=== PATIENT | female | born 1950 | race Caucasian/White ===

== ENCOUNTER 2021-12-10 14:06 | Inpatient (IN) | payer MEDICARE, MEDICAID, SELFPAY ==
[2021-12-10] VITALS (28 sets, daily range): BP systolic 114–167; BP diastolic 61–118; PULSE 45–93; RESP 9–24; TEMP 36.7–37.7; O2SAT 89–98; BMI 30.7
--- NOTE | 2021-12-10 14:26 | XR_ITS ---
WS: [id number] Portable AP semiupright chest, 12/10/2021 Clinical Data: altered mental statu Comparison: Portable chest, 08/11/2009. Findings: No nodules, masses or effusions are seen. The heart is normal. The pulmonary vascularity is not increased. No pneumonia or pneumothorax is seen. The aortic arch and descending thoracic aorta s how calcification and tortuosity. XR/XR chest 1V portable [id number] Impression: Atherosclerosis.
--- NOTE | 2021-12-10 14:28 | ECG_ITS ---
[facility] Test Date: 2021-12-10 Pat Name: Anahi Casanova Department: Room: Gender: Female Layout Former: : 1950 Requested By: Kaushal Guo Order Number: [id number] Mitch MD: Jovi Lagunas M.D. Measurements Intervals [place] Rate: 79 P: 50 AK: 141 QRS: -44 QRSD: 82 T: 32 QT: 360 QTc: 414 Interpretive Statements SINUS RHYTHM LEFT AXIS DEVIATION [QRS AXIS < -30] SEPTAL MYOCARDIAL INFARCTION , OF INDETERMINATE AGE [40+ ms Q WAVE IN V1/V2] No previous ECG available for comparison Electronically Signed On 12-10-2021 17:50:35 CDT by Jovi Lagunas M.D. [id number]
--- NOTE | 2021-12-10 14:28 | CT_ITS ---
WS: [id number] CT HEAD NONCONTRAST HISTORY: Symptoms of Acute Stroke TECHNIQUE: Contiguous axial imaging performed through the brain in 2.5 mm imaging. Bone and soft tiss ue windows. Sagittal and coronal reformats reviewed. All CT scans at [facility] use at least one of these dose optimization techniques: automated exposure control; mA and/or kV adjustment per pa tient size (includes targeted exams where dose is matched to clinical indication); or iterative recon struction. DLP: 888.15 mGy.cm COMPARISON: None available. Marked symmetric atrophy bilaterally and marked chronic microvascular ischemic type disease. There is extensive prior microvascular ischemic disease and lacunar infarcts. Bilateral chronic lacunar infar cts in the thalami. Ventricles: Ventricles and extra-axial spaces are prominent on the basis of atrophy. There is some increased density in the expected location of the RIGHT carotid at the skull base. May represent a small amount of acute thrombus. This is a very difficult area to evaluate by CT to the ad jacent bone. Paranasal sinuses: As visualized are clear. Mastoid air cells: Well pneumatized. Calvarium and scalp: Skull is intact with no soft tissue edema or swelling. Heavy, dense calcification in the intracranial carotid arteries through the cavernous sinuses and sup raclinoid. CT/CT head wo con* [id number] IMPRESSION: 1. No acute intracranial hemorrhage or edema. 2. Marked atrophy, chronic microvascular ischemic disease and numerous lacunar infarcts. 3. Slight increased density in the petrous portion of the RIGHT intracranial c arotid artery. This is a difficult region to evaluate by CT. May represent a sm all amount of thrombus. Notified Kaushal Guo at 12/10/2021 2:44 PM.
[2021-12-10 14:37] LABS: Basophils # 0.1 10^3/uL (0.0-0.1); Basophils % 0.4 %; Eosinophils # 0.1 10^3/uL (0.0-0.8); Eosinophils % 0.6 %; Hemoglobin 13.9 g/dL (11.5-15.3); Lymphocytes # 0.4 10^3/uL (0.8-4.8); Lymphocytes % 3.1 %; Mean Corpuscular HGB Conc 30.9 g/dL (30.0-36.0); Mean Corpuscular Hemoglobin 29.5 pg (28.0-34.0); Mean Corpuscular Volume 95.5 fl (81-99); Mean Platelet Volume 11.1 fL (7.4-10.4); Monocytes # 0.3 10^3/uL (0.2-0.9); Monocytes % 2.1 %; Neutrophils # 11.46 10^3/uL (1.8-7.7); Neutrophils % 93.1 %; Nucleated Red Blood Cells % 0 %; Platelet Count 138 10^3/cmm (130-400); Red Blood Count 4.71 10^6/uL (4.1-5.3); Red Cell Distribution Width 13.8 % (12.1-15.1); White Blood Count 12.3 10^3/uL (4.0-10.0)
[2021-12-10 14:42] LABS: Glucose Point of Care 82 mg/dL (70-110)
[2021-12-10 15:02] LABS: Alanine Aminotransferase 9 U/L (0-33); Albumin Level 3.4 g/dL (3.5-5.2); Alkaline Phosphatase 111 IU/L (35-105); Aspartate Amino Transferase 21 U/L (0-32); Blood Urea Nitrogen 29 mg/dL (8-23); Calcium 10.8 mg/dL (8.5-10.5); Carbon Dioxide 26 mmol/L (22-29); Chloride 111 mmol/L (98-107); Glucose 97 mg/dL (65-115); Osmolality Calculated 310 mOsm/kg (285-295); Sodium 147 mmol/L (136-145); Total Bilirubin 1.5 mg/dL (0.15-1.2); Total Protein 6.4 g/dL (6.6-8.7)
--- NOTE | 2021-12-10 15:02 | ED_ITS ---
HPI - Altered Mental Status General: Chief Complaint: Altered Mental Status Stated Complaint: possible stroke Time Seen by Provider: 12/10/21 14:09 History of Present Illness: 71-year-old female presents from the [facility] facility chief complaint of strokelike symptoms that started around noon. Patient has a known history of dementia reports no prior history of strokes per staff last known well was between 1130 and noon after eating lunch she was found unresponsive with left-sided significant weakness and confusion patient was presented to the ER for further assessment and management. Unsure per staff the patient had sustained a fall or had any injuries. Review of Systems General: Reports: ROS unobtainable due to mental status and Other (Unable to obtain accurate review of systems as patient appears very confuse) PFSH ED PFSH: Medical History CKD (chronic kidney disease) HTN (hypertension) Hyperlipidemia Vitamin D deficiency Physical Exam Narrative: Patient has obvious left-sided facial droop left-sided decorticate posture left arm unable to move either of her legs 2+ pitting edema appreciated appears to be very confused with difficulty with word finding Const: COMMON NORMALS: alert (Patient alert oriented x2) HENMT: COMMON NORMALS: normocephalic and external ears normal HEAD & SCALP: normocephalic EXTERNAL EAR: Yes external ears normal Eye: COMMON NORMALS: Equal, round and reactive pupils present PUPIL: Yes Equal, round and reactive pupils present Neck/C-Spine: COMMON NORMALS: no lymphadenopathy, supple and no JVD Lymph: LYMPHATIC: no lymphadenopathy noted and other (Pitting edema noted to bilateral lower extremities.) Chest: COMMONS NORMALS: normal inspection of the chest Resp: COMMON NORMALS: normal respiratory effort, No retractions, No use of accessory muscles and clear to auscultation bilaterally AUSCULTATION: clear to auscultation bilaterally Cardio: COMMON NORMALS: no JVD, regular rate and regular rhythm RATE: regular rate RHYTHM: regular rhythm GI: COMMON NORMALS: Normal to inspection, nondistended, normoactive bowel sounds present, Soft to palpation and non-tender PALPATION: Yes Soft to palpation : COMMON NORMALS: Yes no CVA tenderness BLADDER/KIDNEY EXAM: Yes no CVA tenderness Back/Pelvis: COMMON NORMALS: no CVA tenderness and thoracic and lumbar spine normal to inspection Extremity: NARRATIVE EXTREMITY EXAM: Difficulty with moving both the legs weakness appears to be more in the left side no obvious foot drop appreciated reduced deep tendon reflexes appreciated bilaterally. With no obvious injury. Neuro: CECILY COMA SCALE: document GCS findings SENSORIUM/ORIENTATION: Yes alert (Patient alert oriented x2) OTHER: Obvious decorticate posturing noted to left eye the body NIH approximately 10 on eval however very difficult due to the patient being confused which appears to be somewhat chronic for her obvious left-sided facial droop noted Skin: COMMON NORMALS: no rashes or lesions noted and no wounds GENERAL SKIN EXAM: no rashes or lesions noted Course Vital Signs: Vital signs: Vital Signs Temperature 99.9 F H 12/10/21 14:49 Pulse Rate 72 12/10/21 14:49 Respiratory Rate 17 12/10/21 14:49 Blood Pressure 140/72 12/10/21 14:49 Pulse Oximetry 94 12/10/21 14:09 MDM - Altered Mental Status Medical Decision Making Due to the patient's symptoms and condition at time of onset patient was a stroke activation virtual neurologist assessed the patient in which after speaking with family via nursing staff over the phone it was decided the patient was a TPA candidate as his new did decorticate posturing was not there preceding leg. Initial CT imaging did not reveal any obvious acute stroke. Discussed the patient's case with the sampling expert Dr. Huerta is granted acceptance to the ICU. The patient upon secondary evaluation appears to be somewhat improved in which her decorticate posturing is improving however she still has residual deficits. Due to the family being absent risk versus benefits of TPA were done over the phone via nursing staff in which per the patient's family guardian noted in his chart is in agreement of the risk versus benefit ratio of the TPA. Patient remains in guarded condition at this time. Lab Data : 12/10/21 14:28 12/10/21 14:28 Radiology Impressions Chest X-Ray 12/10/21 14:26 Impression: Atherosclerosis. Head CT 12/10/21 14:28 IMPRESSION: 1. No acute intracranial hemorrhage or edema. 2. Marked atrophy, chronic microvascular ischemic disease and numerous lacunar infarcts. 3. Slight increased density in the petrous portion of the RIGHT intracranial carotid artery. This is a difficult region to evaluate by CT. May represent a small amount of thrombus. Notified Kaushal Guo at 12/10/2021 2:44 PM. Laboratory Results WBC 12.3 10^3/uL (4.0-10.0) H 12/10/21 14: RBC 4.71 10^6/uL (4.1-5.3) 12/10/21 14: Hgb 13.9 g/dL (11.5-15.3) 12/10/21 14: Hct 45.0 % (37.0-47.0) 12/10/21 14: MCV 95.5 fl (81-99) 12/10/21 14: MCH 29.5 pg (28.0-34.0) 12/10/21 14: MCHC 30.9 g/dL (30.0-36.0) 12/10/21: RDW 13.8 % (12.1-15.1) 12/10/21 14: Plt Count 138 10^3/cmm (130-400) 12/10/21 14: MPV 11.1 fL (7.4-10.4) H 12/10/21 14: Neut % (Auto) 93.1 % 12/10/21 14: Lymph % (Auto) 3.1 % 12/10/21 14: Stearns % (Auto) 2.1 % 12/10/21 14: Eos % (Auto) 0.6 % 12/10/21 14: Baso % (Auto) 0.4 % 12/10/21: Neut # (Auto) 11.46 10^3/uL (1.8-7.7) H 12/10/21 14: Lymph # (Auto) 0.4 10^3/uL (0.8-4.8) L 12/10/21 14: Stearns # (Auto) 0.3 10^3/uL (0.2-0.9) 12/10/21: Eos # (Auto) 0.1 10^3/uL (0.0-0.8) 12/10/21 14: Baso # (Auto) 0.1 10^3/uL (0.0-0.1) 12/10/21 14: Nucleated RBC % (auto) 0 % 12/10/21 14:28 Nucleated RBCs # 0.0 /100WBC 12/10/21 14:28 PT 12.90 SECONDS (12.1-14.9) 12/10/21 14:28 INR 0.95 (0.8-1.2) 12/10/21 14:28 APTT 27.6 SECONDS (23.9-36.7) 12/10/21 14:28 Sodium 147 mmol/L (136-145) H 12/10/21 14:28 Potassium 4.4 mmol/L (3.5-5.1) 12/10/21 14:28 Chloride 111 mmol/L (98-107) H 12/10/21 14:28 Carbon Dioxide 26 mmol/L (22-29) 12/10/21 14:28 Anion Gap 14.4 (5-19) 12/10/21 14: BUN 29 mg/dL (8-23) H 12/10/21 14:28 Creatinine 1.7 mg/dL (0.5-0.9) H 12/10/21 14:28 GFR Calculation Not Reportable 12/10/21 14:28 Glucose 97 mg/dL (65-115) 12/10/21 14:28 POC Glucose 82 mg/dL (70-110) 12/10/21 14:39 Calculated Osmolality 310 mOsm/kg (285-295) H 12/10/21 14:28 Calcium 10.8 mg/dL (8.5-10.5) H 12/10/21 14:28 Total Bilirubin 1.5 mg/dL (0.15-1.2) H 12/10/21 14:28 AST 21 U/L (0-32) 12/10/21 14:28 ALT 9 U/L (0-33) 12/10/21 14:28 Alkaline Phosphatase 111 IU/L (35-105) H 12/10/21 14:28 Total Protein 6.4 g/dL (6.6-8.7) L 12/10/21 14:28 Albumin 3.4 g/dL (3.5-5.2) L 12/10/21 14:28 Globulin 3.0 g/dL (1.3-4.6) 12/10/21 14:28 Discharge Plan Discharge Patient Disposition: Admitted As Inpatient Clinical Impression: Stroke, Received intravenous tissue plasminogen activator (tPA) in emergency department, Decorticate posturing Condition: Stable Coding Level of Care Code ED Household Refrigeration Mechanic for Sanchez Osman
[2021-12-10 15:05] LABS: Anion Gap 14.4 (5-19); Potassium 4.4 mmol/L (3.5-5.1)
[2021-12-10 15:08] LABS: INR 0.95 (0.8-1.2)
[2021-12-10 15:09] LABS: Partial Thromboplastin Time 27.6 SECONDS (23.9-36.7)
--- NOTE | 2021-12-10 17:03 | CTR_ITS ---
PROCEDURE INFORMATION: Exam: CT Angiography Head With Contrast, Arteriography Exam date and time: 12/10/2021 6:00 PM Age: 71 years old Clinical indication: Patient HX: Found unresponsive now w R side weakness; Additional info: Stroke TECHNIQUE: Imaging protocol: Computed tomography angiography of the head with contrast. Exam focused on the arteries. 3D rendering (Not supervised by radiologist): MIP and/or 3D reconstructed images were created by the technologist. Radiation optimization: All CT scans at this facility use at least one of these dose optimization techniques: automated exposure control; mA and/or kV adjustment per patient size (includes targeted exams where dose is matched to clinical indication); or iterative reconstruction. Contrast material: VISI 320; Contrast volume: 95 ml; Contrast route: INTRAVENOUS (IV); COMPARISON: 1. CT head wo con* [id number] 12/10/2021 2:32 PM 2. CR XR chest 1V portable [id number] 12/10/2021 2:40 PM RADIATION DOSE METRICS: Total DLP (mGy-cm): 1396.47 FINDINGS: ANTERIOR CIRCULATION: Right internal carotid artery: Calcified plaque in the cavernous right internal carotid artery without significant stenosis. Right middle cerebral artery: Mild irregularity and mild stenosis in the M1 segment of the right middle cerebral artery. The remaining branches are widely patent. Right anterior cerebral artery: Unremarkable. No occlusion or significant stenosis. No aneurysm. Left internal carotid artery: Calcified plaque in the cavernous left internal carotid artery without significant stenosis. Left middle cerebral artery: Unremarkable. No occlusion or significant stenosis. No aneurysm. Left anterior cerebral artery: Unremarkable. No occlusion or significant stenosis. No aneurysm. POSTERIOR CIRCULATION: Right vertebral artery: Unremarkable. No occlusion or significant stenosis. No aneurysm. Left vertebral artery: Unremarkable. No occlusion or significant stenosis. No aneurysm. 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 No evidence for leak. Right posterior cerebral artery: Unremarkable. No occlusion or significant stenosis. No aneurysm. Left posterior cerebral artery: Unremarkable. No occlusion or significant stenosis. No aneurysm. Brain: Severe hypodensities in supratentorial periventricular and subcortical white matter, consistent with microangiopathy. No intracranial hemorrhage. Moderate cortical volume loss. Cerebral ventricles: No ventriculomegaly. Orbital cavity: Prior cataract surgery. Bones/joints: Unremarkable. No acute fracture. Soft tissues: Unremarkable. PROCEDURE INFORMATION: Exam: CT Angiography Neck With Contrast Exam date and time: 12/10/2021 6:00 PM Age: 71 years old Clinical indication: Patient HX: Found unresponsive now w R side weakness; Additional info: Stroke TECHNIQUE: Imaging protocol: Computed tomography angiography of the neck with contrast. 3D rendering (Not supervised by radiologist): MIP and/or 3D reconstructed images were created by the technologist. Radiation optimization: All CT scans at this facility use at least one of these dose optimization techniques: automated exposure control; mA and/or kV adjustment per patient size (includes targeted exams where dose is matched to clinical indication); or iterative reconstruction. Contrast material: VISI 320; Contrast volume: 95 ml; Contrast route: INTRAVENOUS (IV); COMPARISON: 1. CT head wo con* [id number] 12/10/2021 2:32 PM 2. CR XR chest 1V portable [id number] 12/10/2021 2:40 PM RADIATION DOSE METRICS: Total DLP (mGy-cm): 1396.47 FINDINGS: Right common carotid artery: No stenosis. No dissection or occlusion. Right internal carotid artery: Calcified plaque in the proximal right internal carotid artery with 0% stenosis. Right external carotid artery: No occlusion or stenosis of the origin. Left common carotid artery: Mild plaque in the distal left common carotid artery with less than 20% stenosis. Left internal carotid artery: Calcified plaque in the proximal left internal carotid artery with 0% stenosis. Left external carotid artery: No occlusion or stenosis of the origin. Right vertebral artery: No stenosis. No dissection or occlusion. Left vertebral artery: No stenosis. No dissection or occlusion. Left subclavian artery: Calcified and noncalcified plaque in the proximal left subclavian artery with 50% stenosis. Thyroid: Bilateral thyroid nodules measuring up to 1.6 cm on the right. Soft tissues: Normal. No significant soft tissue swelling. Bones/joints: No acute fracture. CT/CT angio headneck* [id number] IMPRESSION: 1. Mild irregularity and mild stenosis in the M1 segment of the right middle cerebral artery. This is likely not hemodynamically significant and could represent atherosclerotic disease or vasculitis. 2. No other large artery occlusion or stenosis. 3. 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 IMPRESSION: 1. Calcified plaque in the bilateral proximal internal carotid arteries with 0% stenosis. 2. 50% stenosis in the proximal left subclavian artery. 3. Thyroid nodules measuring up to 1.6 cm. Ultrasound follow-up is recommended. COMMENTS: Consistent with the [employer]'s Incidental Findings Committee white paper (J Am Yeimi Radiol 2015): In patients aged 35 years and older with an incidental thyroid nodule equal to or greater than 1.[address], MRI or extrathyroidal US, further evaluation with dedicated thyroid US is recommended for patients with normal life expectancy and without comorbidities. For smaller nodules without suspicious features, no further evaluation or follow up is recommended. REFERENCES: NASCET CRITERIA. The degree of internal carotid artery stenosis is based on NASCET criteria. Normal is no stenosis. Mild is less than 50% stenosis. Moderate is 50-69% stenosis. Severe is 70% to 99% stenosis. Total occlusion is no detectable patent lumen.
--- NOTE | 2021-12-10 17:06 | P.HP_ITS ---
Providers/Chief Complaint Primary Care Provider: Ovidio Dumas MD Chief Complaint: possible stroke History of Present Illness Most of the history taken 02 conversation with long term, ER physician and chart review. Anahi Casanova is a 71 year old female who is a long term resident, previously on hospice which was recently revoked, advanced dementia presented to the ER today after found to be having weakness of the left side of the body with facial drooping at around 11 AM. In the ER CT head was done labs were drawn. Labs are consistent with a white count 12.3, hemoglobin of 13.9, INR of 0.9, sodium 147, chloride of 111, creatinine of 1.7, albumin of 3.[address] head as below. Stroke code was called and neurologist at [facility] was consulted at that time patient had an NIH score of 12 and decision was made to give TPA after confirming with patient's state appointed guardian Ms. Alcala on [phone]. Hospital services consulted for further care and admission. Review of Systems General: Reports: ROS unobtainable due to mental status Medications/Allergies Home Medications Medication Instructions Recorded Confirmed Last Taken Type acetaminophen 325 mg tablet 650 mg PO QID PRN tab 12/31/19 12/10/21 Unknown History (Tylenol) acetaminophen 650 mg rectal 650 mg OK Q4H PRN 12/31/19 12/10/21 Unknown History suppository loperamide 2 mg capsule (Imodium 2 mg PO Q6H PRN 12/31/19 12/10/21 Unknown History A-D) hydrocodone 10 mg-acetaminophen 1 tab PO BID 30 Days #60 tab 12/03/21 12/10/21 12/10/21 Rx 325 mg tablet magnesium hydroxide 400 mg/5 mL 15 ml PO BID PRN 12/10/21 12/10/21 Unknown History oral suspension (Milk of Magnesia) morphine 20 mg/5 mL (4 mg/mL) oral See Rx Instructions .ROUTE 12/10/21 12/10/21 Unknown History solution .COMPLEX PRN olanzapine 2.5 mg tablet (Zyprexa) 2.5 mg PO QPM 12/10/21 12/10/21 12/09/21 History sennosides 8.6 mg tablet (Senokot) 8.6 mg PO BID 12/10/21 12/10/21 12/09/21 H istory Allergies Allergy/AdvReac Type Severity Reaction Status Date / Time latex Allergy Unknown Verified 12/10/21 14:26 PFSH Acute PFSH: Medical History (Updated 12/10/21 @ 17:09 by Brendan Johnson MD) CKD (chronic kidney disease) HTN (hypertension) Hyperlipidemia Vitamin D deficiency Vitals/I&O/Wt Last Vital Signs Temp 99.9 F H 12/10/21 14:49 Pulse 72 12/10/21 14:49 Resp 17 12/10/21 14:49 BP 140/72 12/10/21 14:49 Pulse Ox 94 12/10/21 14:09 Weight last 48 hrs Weight 86.183 kg Physical Exam Narrative: General: Awake, alert to self, confused, pupils bilaterally equal and reactive, slight facial drooping HEENT: PERRLA, pupils bilaterally equal and reactive Chest: Normal vesicular breath sounds, no added sounds, equal good air entry bilaterally CVS: S1-S2 regular, no murmurs, no tachycardia, no gallops, no rubs Abdomen: Soft, nontender, no organomegaly, bowel sounds present Neuro:Obvious decorticate posturing noted to left side of the body NIH approximately 10 on eval however very difficult due to the patient being confused which appears to be somewhat chronic for her obvious left-sided facial droop noted Data : 12/10/21 14:28 12/10/21 14:28 A&P Assessment and plan (1) Stroke: Status: Acute (2) Received intravenous tissue plasminogen activator (tPA) in emergency department: Status: Acute (3) Decorticate posturing: Status: Acute (4) CKD (chronic kidney disease): Status: Acute (5) Hypernatremia: Status: Acute (6) HTN (hypertension): Status: Acute (7) Dementia associated with other underlying disease with behavioral disturbance: Status: Acute Plan Acute ischemic stroke: Receiving TPA in the ER. Appreciate neurology recommendations from [facility]. Permissible hypertension. PT/OT/speech evaluation. N.p.o. for now. It seems like patient is on nectar thickened liquids at baseline at long term. CT head without contrast in a.m. Aspirin 81 mg daily from tomorrow. Check A1c, lipid panel. CKD: Creatinine 1.7. On review of chart Baseline creatinine 1.5-1.8. Continue to monitor daily for now. Medical reconciliation for nephrotoxic drugs. Hypernatremia: Most likely secondary from dehydration. D5 NS at 75 cc/h. Check urine lites. Monitor BMP daily for now. Fever: Could be secondary to stroke. Chest x-ray without any consolidation. Check flu swab, urinalysis. For now start patient on IV ceftriaxone. CODE STATUS: As per chart review and confirming with patient's state appointed guardian Ms. Alcala on [phone]. DNR/DNI. NPO. Protonix for PUD prophylaxis. SCDs for DVT prophylaxis. Admission to ICU for post TPA monitoring. Attestations Medical Necessity Statement*: Admission for more than 2 midnights for acute ischemic stroke receiving TPA, hypernatremia, fever Critical Care Time: The high probability of a clinically significant, sudden or life threatening deterioration of the patient's neurological, renal, ID [] system(s) required my full and direct attention, intervention and personal management. The critical care time is as shown. This time is in addition to time spent performing any reported procedures but includes the following: [x] Data and vital sign review and interpretation [x] Patient assessment, examination and intervention [x] Documentation [x] Medication orders and management Critical Care Time (min): 90 Coding Level of Care Code Acute Waiter/Waitress Take Out for Sanchez Fwd History Comprehensive Exam Comprehensive Medical Decision Making High Complexity Diagnoses Stroke I63.9 Received intravenous tissue plasminogen activator (tPA) in emergency department Z92.82 Decorticate posturing R29.3 Dementia associated with other underlying disease with behavioral disturbance F02.81 CKD (chronic kidney disease) N18.9 Hypernatremia E87.0 HTN (hypertension) I10
[2021-12-10 17:54] LABS: Procalcitonin 0.25 ng/mL (0-0.5); Thyroid Stimulating Hormone 1.95 uIU/mL (0.27-4.20)
[2021-12-10] MEDS: iodixanol 320 mg/mL 100mL Btl IV (18:04)
[2021-12-10 18:05] LABS: Iron 29 ug/dL (37-145); Percent Saturation 15.5 % (20-50); Total Iron Binding Capacity 187 mcg/dl; Unsaturated Iron Binding 158 ug/dL (112-347)
--- NOTE | 2021-12-10 18:58 | PC.NURSE ---
Patient arrived from ED approximately 1820, patient orientated to self only, patient not cooperating with staff, unable to assess proper neuro checks and NIH stroke scale due to patient being verbally abusive and uncooperative
--- NOTE | 2021-12-10 19:08 | PC.NURSE ---
Unable to document accurate NIH scale due to patient being uncooperative
[2021-12-10] MEDS: HYDROcodone-acetaminophen 10-325 mg Tablet 1 TAB PO (20:13)
[2021-12-10] MEDS: atorvastatin 40 mg Tablet 20 MG PO (20:13)
[2021-12-10] MEDS: pantoprazole 40 mg SDV IVP (20:13)
[2021-12-10] MEDS: sennosides 8.6 mg Tablet PO (20:14)
[2021-12-10] MEDS: dextrose 5%-sod chloride 0.9% 1,000 ML 75 ML IV (20:14)
[2021-12-10] MEDS: cefTRIAXone 1,000 MG in sodium chloride 0.9% (plus) 50 ML 100 MG IV (20:14)
--- NOTE | 2021-12-10 20:28 | PC.NURSE ---
Dysphagia screening performed at bedside. Pt given spoonfuls of water with no cough produced. Pt able so swallow nectar thickened liquids from a cup without coughing. No signs or symptoms of aspiration at this time.
--- NOTE | 2021-12-10 21:37 | PC.NURSE ---
Change in neuro status, pt can no longer tell me the year of her , but knows month and day.
[2021-12-10 21:48] LABS: Amphetamines Screen Urine Negative (Negative); Barbiturates Screen Urine Negative (Negative); Benzodiazepines Screen Urine Negative (Negative); Cocaine Screen Urine Negative (Negative); Opiate Screen Urine Positive (Negative); PCP Screen Urine Negative (Negative); THC Screen Urine Negative (Negative)
[2021-12-10 21:57] LABS: Bilirubin Urine Neg (Negative); Blood Urine 3+ (Negative); Glucose Urine UA Norm (Normal); Ketones Urine Negative (Negative); Leukocyte Esterase Urine 2+ (Negative); Nitrate Urine Negative (Negative); Protein Urine 1+ (Negative); Sulfosalicylic Acid Urine Positive (Negative); Urine Color Yellow (Yellow); Urobilinogen Urine Norm (Negative); pH Urine 9 (5-7)
[2021-12-10 21:58] LABS: Add Urine Microscopic? YES; Bacteria Urine 4+ /hpf; RBC Urine 40-50 /hpf (0-2); Squamous Epithelial Cell Urine 25-40 /hpf (0-5); WBC Urine 40-55 /hpf (0-5)
[2021-12-10 21:59] LABS: Add Urine Culture? No
[2021-12-10 22:03] LABS: Potassium, Radom Urine 42 mmol/L; Urine Random Chloride 58 mmol/L; Urine Random Sodium 66 mmol/L
--- NOTE | 2021-12-10 22:39 | PC.NURSE ---
Nurse, Dmitriy, from [facility] called for patient update. Dmitriy tells me that pt is up to the dining room with a Jamil lift. She is able to feed herself. She is on a regular diet with thin liquids. She is usually alert to person only.
[2021-12-11] VITALS (46 sets, daily range): BP systolic 94–199; BP diastolic 43–130; PULSE 49–98; RESP 9–23; TEMP 36.4–36.8; O2SAT 87–100
--- NOTE | 2021-12-11 00:50 | PC.NURSE ---
Assessment 15 minutes late due to emergency on unit.
--- NOTE | 2021-12-11 01:53 | PC.NURSE ---
SCDs not placed on pt due to the fact that if you lightly touch her legs or feet, she yells and grimaces.
--- NOTE | 2021-12-11 03:33 | PC.NURSE ---
Unable to fully assess pt at this time due to aggressive behavior. Pt shakes right fist at staff and states, get the hell out of here, you stupid b*tch.
--- NOTE | 2021-12-11 04:39 | PC.NURSE ---
Pt resting quietly in bed with eyes closed. She awakens easily, but is unable to complete neuro check at this time.
[2021-12-11 05:15] LABS: Basophils % 0.3 %; Eosinophils % 0.1 %; Hematocrit 36.3 % (37.0-47.0); Hemoglobin 11.4 g/dL (11.5-15.3); Lymphocytes # 0.4 10^3/uL (0.8-4.8); Mean Corpuscular HGB Conc 31.4 g/dL (30.0-36.0); Mean Corpuscular Hemoglobin 30.5 pg (28.0-34.0); Mean Corpuscular Volume 97.1 fl (81-99); Mean Platelet Volume 11.3 fL (7.4-10.4); Monocytes # 0.5 10^3/uL (0.2-0.9); Monocytes % 4.4 %; Neutrophils # 10.52 10^3/uL (1.8-7.7); Neutrophils % 91.2 %; Nucleated Red Blood Cells % 0 %; Platelet Count 100 10^3/cmm (130-400); Red Blood Count 3.74 10^6/uL (4.1-5.3); Red Cell Distribution Width 13.9 % (12.1-15.1); White Blood Count 11.5 10^3/uL (4.0-10.0)
[2021-12-11 05:38] LABS: Estmated Average Glucose 88; Hemoglobin A1C 4.7 % (4.0-6.0)
[2021-12-11 05:41] LABS: Alanine Aminotransferase 15 U/L (0-33); Albumin Level 2.7 g/dL (3.5-5.2); Alkaline Phosphatase 123 IU/L (35-105); Anion Gap 11.5 (5-19); Aspartate Amino Transferase 32 U/L (0-32); Blood Urea Nitrogen 34 mg/dL (8-23); Calcium 9.5 mg/dL (8.5-10.5); Carbon Dioxide 22 mmol/L (22-29); Chloride 114 mmol/L (98-107); Chol HDL Ratio 3.03 mg/dL (0.0-4.40); Cholesterol 121 mg/dL (0-200); Globulin 2.5 g/dL (1.3-4.6); Glucose 124 mg/dL (65-115); HDL Cholesterol 40 mg/dL (60-100); LDL Cholesterol Calculated 67 mg/dL (50-129); Osmolality Calculated 307 mOsm/kg (285-295); Potassium 3.5 mmol/L (3.5-5.1); Sodium 144 mmol/L (136-145); Total Bilirubin 1.5 mg/dL (0.15-1.2); Total Protein 5.2 g/dL (6.6-8.7); Triglycerides 69 mg/dL (0-150); VLDL Cholestrol Calculation 14 mg/dL (0-30)
[2021-12-11] MEDS: sennosides 8.6 mg Tablet PO ×2 (08:50→17:28)
[2021-12-11] MEDS: aspirin 81 mg EC Tablet PO (08:50)
[2021-12-11] MEDS: HYDROcodone-acetaminophen 10-325 mg Tablet 1 TAB PO (08:50)
[2021-12-11] MEDS: pantoprazole 40 mg SDV IVP (08:51)
[2021-12-11] MEDS: dextrose 5%-sod chloride 0.9% 1,000 ML 75 ML IV ×2 (08:58→23:33)
--- NOTE | 2021-12-11 13:04 | PC.OT ---
OT EVALUATION ATTEMPTED TWICE THIS A.M. PATIENT SLEEPING SOUNDLY AND DOES NOT AWAKEN TO VOICE OR TOUCH. PER DASHA HENRY NURSE: PATIENT IS A SHO LIFT FOR TRANSFERS AND DEPENDENT IN ALL ADL CARE EXCEPT FEEDING HERSELF. WILL ATTEMPT AGAIN TOMORROW TO DETERMINE IF PATIENT IS ABLE TO FEED HERSELF AND IF SHE IS AT BASELINE.
--- NOTE | 2021-12-11 13:30 | P.PN_ITS ---
Subjective Subjective: Walked events overnight. Patient has no new neurological deficits. Has remained hemodynamically stable and afebrile. Slight better mobility of left side today. Vitals/I&O/Wt Last Vital Signs Temp 98.2 F 12/11/21 03:30 Pulse 98 12/11/21 12:00 Resp 13 12/11/21 08:00 BP 98/66 12/11/21 08:00 Pulse Ox 95 12/11/21 09:32 12/10/21 12/11/21 12/11/21 22:59 06:59 14:59 Intake Total 150 / 150 60 / 210 1155 / 1155 Output Total 50 / 50 Balance 100 / 100 60 / 160 1155 / 1155 Weight last 48 hrs Weight 86.183 kg Physical Exam Narrative: General: Awake, alert to self, confused, pupils bilaterally equal and reactive, slight facial drooping HEENT: PERRLA, pupils bilaterally equal and reactive Chest: Normal vesicular breath sounds, no added sounds, equal good air entry bilaterally CVS: S1-S2 regular, no murmurs, no tachycardia, no gallops, no rubs Abdomen: Soft, nontender, no organomegaly, bowel sounds present Neuro:Obvious decorticate posturing noted to left side of the body NIH approximately 10 on eval however very difficult due to the patient being confused which appears to be somewhat chronic for her obvious left-sided facial droop noted Data : 12/11/21 04:51 12/11/21 04:51 Micro: Microbiology 12/10/21 21:25 MRSA Culture - Final Nose 12/10/21 21:25 Legionella Urinary Antigen - Final Urine Catheterized 12/10/21 18:45 Blood Culture - Preliminary Blood SPECIMEN COLLECTED 12/10/21 18:40 Blood Culture - Preliminary Blood SPECIMEN COLLECTED A&P Assessment and plan (1) Stroke: Status: Acute (2) Received intravenous tissue plasminogen activator (tPA) in emergency department: Status: Acute (3) Decorticate posturing: Status: Acute (4) CKD (chronic kidney disease): Status: Acute (5) Hypernatremia: Status: Acute (6) HTN (hypertension): Status: Acute (7) Dementia associated with other underlying disease with behavioral disturbance: Status: Acute Plan Acute ischemic stroke: Post TPA care. Appreciate neurology recommendations from [facility]. Goal blood pressure 140/90 mmHg and less. Appreciate PT/OT/swallow evaluation. Diet advanced accordingly. CT head post 24 hours. Continue with aspirin, statin. Appreciate A1c and lipid panel. CKD: Creatinine stable at 1.7. On review of chart Baseline creatinine 1.5-1.8. Continue to monitor daily for now. Medical reconciliation for nephrotoxic drugs. Hypernatremia: Resolving. Most likely secondary from dehydration. Continue with D5 NS at 75 cc/h. Monitor BMP daily for now. UTI: Febrile on admission. Chest x-ray without any consolidation. Continue IV ceftriaxone. Follow-up culture results. CODE STATUS: As per chart review and confirming with patient's state appointed guardian Ms. Alcala on [phone]. DNR/DNI. NPO. Protonix for PUD prophylaxis. SCDs for DVT prophylaxis. Plan for day: Continue with IV ceftriaxone. CT head 24 hours post TPA. Blood pressure monitoring. PT/OT/swallow evaluation. Continued IV fluids. Repeat BMP tomorrow. Plan for discharge: Plan for discharge within next 24 hours back to SNF if CT head negative on oral antibiotics. Attestations Medical Necessity Statement*: Requires further hospitalization for management of post TPA for acute ischemic stroke, UTI Time Spent in Patient Care: Greater than 35 minutes Coding Level of Care Code Acute Clinical Massage Therapist for [facility] Fwd Diagnoses Stroke I63.9 Received intravenous tissue plasminogen activator (tPA) in emergency department Z92.82 Decorticate posturing R29.3 CKD (chronic kidney disease) N18.9 Hypernatremia E87.0 HTN (hypertension) I10 Dementia associated with other underlying disease with behavioral disturbance F02.81
--- NOTE | 2021-12-11 16:00 | CTR_ITS ---
PROCEDURE INFORMATION: Exam: CT Head Without Contrast Exam date and time: 12/11/2021 3:58 PM Age: 71 years old Clinical indication: Abnormal findings; Abnormal radiologic findings of head/skull; Not specified; Patient HX: Post tpa f/u; Additional info: Post tpa, do at 1600 post tpa per bj TECHNIQUE: Imaging protocol: Computed tomography of the head without contrast. Radiation optimization: All CT scans at this facility use at least one of these dose optimization techniques: automated exposure control; mA and/or kV adjustment per patient size (includes targeted exams where dose is matched to clinical indication); or iterative reconstruction. COMPARISON: CT head wo con* [id number] 12/10/2021 2:32 PM RADIATION DOSE METRICS: Total DLP (mGy-cm): 764.23 FINDINGS: No change since the prior exam. Mild to moderate brain atrophy and moderate to severe white matter chronic microvascular changes are again noted. No hemorrhage or evidence of acute infarction. CT/CT head wo con* [id number] IMPRESSION: No change since the prior exam. No acute intracranial abnormality is visualized. No hemorrhage is detected.
--- NOTE | 2021-12-11 17:53 | NUR.SHIFT ---
Shift Note Frequent safety and comfort rounds continue. Orders and/or nursing care completed have turned pt q 2hr incontinent of urine no breakdown but buttocks red macerated open to air. Patient monitored for response to intervention and treatment(s). Education provided includes stoke teaching and tpa. Patient and/or professional healthcare representative needs reinforcment Will continue to monitor.
[2021-12-11] MEDS: cefTRIAXone 1,000 MG in sodium chloride 0.9% (plus) 50 ML 100 MG IV (18:02)
[2021-12-11 19:00] LABS: Bacillus cereus group Not Detected (NOT DETECT); Bacillus subtillis group Not Detected (NOT DETECT); Corynebacterium Not Detected (NOT DETECT); Cutibacterium acnes (P.acnes) Not Detected (NOT DETECT); Enterococcus Not Detected (NOT DETECT); Enterococcus faecalis Not Detected (NOT DETECT); Enterococcus faecium Not Detected (NOT DETECT); Lactobacillus species Not Detected (NOT DETECT); Listeria Not Detected (NOT DETECT); Listeria monocytogenes Not Detected (NOT DETECT); Micrococcus Not Detected (NOT DETECT); Pan Candida Not Detected (NOT DETECT); Pan Gram-Negative Not Detected (NOT DETECT); Staphylococcus epidermidis Not Detected (NOT DETECT); Staphylococcus lugdunensis Not Detected (NOT DETECT); Staphylococcus species Not Detected (NOT DETECT); Streptococcus agalactiae Not Detected (NOT DETECT); Streptococcus anginosus group Detected (NOT DETECT); Streptococcus pneumoniae Not Detected (NOT DETECT); Streptococcus pyogenes Not Detected (NOT DETECT); Streptococcus species Detected (NOT DETECT)
[2021-12-11] MEDS: OLANZapine 5 mg TABLET 2.5 MG PO (19:08)
[2021-12-12] VITALS (20 sets, daily range): BP systolic 106–145; BP diastolic 49–86; PULSE 56–71; RESP 10–16; TEMP 36.5–36.7; O2SAT 92–100; BMI 26.6
[2021-12-12 05:37] LABS: Glucose Point of Care 102 mg/dL (70-110)
--- NOTE | 2021-12-12 05:40 | PC.NURSE ---
Labwork Patient's glucose level in CMP came back critical at 589, along with a low potassium level of 2.9. Finger stick completed to verify results. Finger stick revealed blood glucose of 102. D5 running in IV at 75 ml/hr at time of lab draw. Dr. Douglas notified of differing results and order received to redraw labs. IV stopped for multiple minutes for redraw of CMP and CBC. Redraw glucose level 117 and potassium 3.6.
[2021-12-12 06:42] LABS: Basophils # 0.1 10^3/uL (0.0-0.1); Basophils % 0.6 %; Eosinophils # 0.1 10^3/uL (0.0-0.8); Eosinophils % 1.1 %; Hematocrit 36.2 % (37.0-47.0); Hemoglobin 11.1 g/dL (11.5-15.3); Lymphocytes # 0.8 10^3/uL (0.8-4.8); Lymphocytes % 8.7 %; Mean Corpuscular HGB Conc 30.7 g/dL (30.0-36.0); Mean Corpuscular Hemoglobin 29.8 pg (28.0-34.0); Mean Corpuscular Volume 97.3 fl (81-99); Mean Platelet Volume 12.8 fL (7.4-10.4); Monocytes # 0.9 10^3/uL (0.2-0.9); Monocytes % 9.6 %; Neutrophils # 7.19 10^3/uL (1.8-7.7); Neutrophils % 79.2 %; Nucleated Red Blood Cells % 0 %; Red Blood Count 3.72 10^6/uL (4.1-5.3); Red Cell Distribution Width 14.2 % (12.1-15.1); White Blood Count 9.1 10^3/uL (4.0-10.0)
[2021-12-12 07:09] LABS: Platelet Count 100 10^3/cmm (130-400); Slide Review Slide Review Perform
[2021-12-12 07:11] LABS: Alanine Aminotransferase 18 U/L (0-33); Albumin Level 2.6 g/dL (3.5-5.2); Alkaline Phosphatase 140 IU/L (35-105); Anion Gap 12.6 (5-19); Aspartate Amino Transferase 23 U/L (0-32); Blood Urea Nitrogen 34 mg/dL (8-23); Calcium 9.7 mg/dL (8.5-10.5); Carbon Dioxide 21 mmol/L (22-29); Chloride 116 mmol/L (98-107); Globulin 2.2 g/dL (1.3-4.6); Glucose 117 mg/dL (65-115); Osmolality Calculated 311 mOsm/kg (285-295); Potassium 3.6 mmol/L (3.5-5.1); Sodium 146 mmol/L (136-145); Total Bilirubin 0.7 mg/dL (0.15-1.2); Total Protein 4.8 g/dL (6.6-8.7)
[2021-12-12] MEDS: sennosides 8.6 mg Tablet PO (08:50)
[2021-12-12] MEDS: HYDROcodone-acetaminophen 10-325 mg Tablet 1 TAB PO (08:50)
[2021-12-12] MEDS: aspirin 81 mg EC Tablet PO (08:50)
[2021-12-12] MEDS: pantoprazole 40 mg SDV IVP (08:52)
--- NOTE | 2021-12-12 10:31 | PM.DCS ---
Discharge Providers Date of Admission: 12/10/21 16:13 Date of Discharge: December 12, 2021 Attending Provider at Admission: Brendan Johnson MD Attending Provider at Discharge: Brendan Johnson MD Primary Care Provider: Ovidio Dumas MD Diagnoses at Discharge Discharge Diagnosis (1) Stroke: Status: Acute (2) Received intravenous tissue plasminogen activator (tPA) in emergency department: Status: Acute (3) Decorticate posturing: Status: Acute (4) CKD (chronic kidney disease): Status: Acute (5) Hypernatremia: Status: Acute (6) HTN (hypertension): Status: Acute (7) Dementia associated with other underlying disease with behavioral disturbance: Status: Acute Reason for Visit Reason for Visit: possible stroke Hospital Course Hospital Course Most of the history taken by conversation with care home, ER physician and chart review. Anahi Casanova is a 71 year old female who is a care home resident, previously on hospice which was recently revoked, advanced dementia presented to the ER today after found to be having weakness of the left side of the body with facial drooping at around 11 AM.? In the ER CT head was done labs were drawn.? Labs are consistent with a white count 12.3, hemoglobin of 13.9, INR of 0.9, sodium 147, chloride of 111, creatinine of 1.7, albumin of 3.[address] head as below.? Stroke code was called and neurologist at [facility] was consulted at that time patient had an NIH score of 12 and decision was made to give TPA after confirming with patient's state appointed guardian Ms. Alcala on [phone]. She was admitted to the hospital for post TPA care and hypernatremia. She admitted the ICU and monitor neurologically. Repeat CT scan post 24 hours of TPA remained stable. During hospitalization she was found to have a UTI. A urine culture remain negative. Otherwise her hospitalization was unremarkable. She has been discharged back to SNF at her baseline mentation on oral Levaquin for 3 more days, aspirin. She is been advised to follow-up with her primary care provider within next 1 week for repeat CMP to monitor for sodium levels. Physical Exam Narrative: General: Awake, alert to self, confused, pupils bilaterally equal and reactive, slight facial drooping HEENT: PERRLA, pupils bilaterally equal and reactive Chest: Normal vesicular breath sounds, no added sounds, equal good air entry bilaterally CVS: S1-S2 regular, no murmurs, no tachycardia, no gallops, no rubs Abdomen: Soft, nontender, no organomegaly, bowel sounds present Neuro:Obvious decorticate posturing noted to left side of the body NIH approximately 10 on eval however very difficult due to the patient being confused which appears to be somewhat chronic for her obvious left-sided facial droop noted Discharge Data Studies Completed and Pending Completed Studies During Hospitalization Category Date Time Status CT head wo con* [id number] Routine Cat Scan 12/11/21 16:[address] head wo con* [id number] Stat Cat Scan 12/10/21 14:28 Completed CTA head neck [CT angio headneck* [id number]] Urgent Cat Scan 12/10/21 17:03 Completed XR chest 1V portable [id number] Stat Exams 12/10/21 14:26 Completed Pending at discharge Category Date Time Status Blood Culture Stat Lab 12/10/21 18:45 Results Urine Culture Stat Lab 12/11/21 08:51 Results Radiology Impressions Chest X-Ray 12/10/21 14:26 Impression: Atherosclerosis. Head/Neck CTA 12/10/21 17:03 IMPRESSION: 1. Mild irregularity and mild stenosis in the M1 segment of the right middle cerebral artery. This is likely not hemodynamically significant and could represent atherosclerotic disease or vasculitis. 2. No other large artery occlusion or stenosis. 3. 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 IMPRESSION: 1. Calcified plaque in the bilateral proximal internal carotid arteries with 0% stenosis. 2. 50% stenosis in the proximal left subclavian artery. 3. Thyroid nodules measuring up to 1.6 cm. Ultrasound follow-up is recommended. COMMENTS: Consistent with the [employer]'s Incidental Findings Committee white paper (J Am Yeimi Radiol 2015): In patients aged 35 years and older with an incidental thyroid nodule equal to or greater than 1.[address], MRI or extrathyroidal US, further evaluation with dedicated thyroid US is recommended for patients with normal life expectancy and without comorbidities. For smaller nodules without suspicious features, no further evaluation or follow up is recommended. REFERENCES: NASCET CRITERIA. The degree of internal carotid artery stenosis is based on NASCET criteria. Normal is no stenosis. Mild is less than 50% stenosis. Moderate is 50-69% stenosis. Severe is 70% to 99% stenosis. Total occlusion is no detectable patent lumen. Head CT 12/11/21 16:00 IMPRESSION: No change since the prior exam. No acute intracranial abnormality is visualized. No hemorrhage is detected. Laboratory Results WBC 9.1 10^3/uL (4.0-10.0) 12/12/21 06:20 Corrected WBC Cancelled 12/12/21 03:45 RBC 3.72 10^6/uL (4.1-5.3) L 12/12/21 06:20 Hgb 11.1 g/dL (11.5-15.3) L 12/12/21 06:20 Hct 36.2 % (37.0-47.0) L 12/12/21 06:20 MCV 97.3 fl (81-99) 12/12/21 06:20 MCH 29.8 pg (28.0-34.0) 12/12/21 06:20 MCHC 30.7 g/dL (30.0-36.0) 12/12/21 06:20 RDW 14.2 % (12.1-15.1) 12/12/21 06:20 Plt Count 100 10^3/cmm (130-400) L 12/12/21 06:20 MPV 12.8 fL (7.4-10.4) H 12/12/21 06:20 Gran % Cancelled 12/12/21 03:45 Neut % (Auto) 79.2 % 12/12/21 06:20 Lymph % (Auto) 8.7 % 12/12/21 06:20 [place] % (Auto) 9.6 % 12/12/21 06:20 Eos % (Auto) 1.1 % 12/12/21 06:20 Baso % (Auto) 0.6 % 12/12/21 06:20 Neut # (Auto) 7.19 10^3/uL (1.8-7.7) 12/12/21 06:20 Lymph # (Auto) 0.8 10^3/uL (0.8-4.8) 12/12/21 06:20 [place] # (Auto) 0.9 10^3/uL (0.2-0.9) 12/12/21 06:20 Eos # (Auto) 0.1 10^3/uL (0.0-0.8) 12/12/21 06:20 Baso # (Auto) 0.1 10^3/uL (0.0-0.1) 12/12/21 06:20 Absolute Gran (auto) Cancelled 12/12/21 03:45 Nucleated RBC % (auto) 0 % 12/12/21 06:20 Nucleated RBCs # 0.0 /100WBC 12/12/21 06:20 PT 12.90 SECONDS (12.1-14.9) 12/10/21 14:28 INR 0.95 (0.8-1.2) 12/10/21 14:28 APTT 27.6 SECONDS (23.9-36.7) 12/10/21 14:28 Sodium 146 mmol/L (136-145) H 12/12/21 06:20 Potassium 3.6 mmol/L (3.5-5.1) 12/12/21 06:20 Chloride 116 mmol/L (98-107) H 12/12/21 06:20 Carbon Dioxide 21 mmol/L (22-29) L 12/12/21 06:20 Anion Gap 12.6 (5-19) 12/12/21 06:20 BUN 34 mg/dL (8-23) H 12/12/21 06:20 Creatinine 1.8 mg/dL (0.5-0.9) H 12/12/21 06:20 GFR Calculation Not Reportable 12/12/21 06:20 Glucose 117 mg/dL (65-115) H 12/12/21 06:20 POC Glucose 102 mg/dL (70-110) 12/12/21 05:34 Estimat Average Glucose 88 12/11/21 04:51 Hemoglobin A1c 4.7 % (4.0-6.0) 12/11/21 04:51 Calculated Osmolality 311 mOsm/kg (285-295) H 12/12/21 06:20 Calcium 9.7 mg/dL (8.5-10.5) 12/12/21 06:20 Iron 29 ug/dL (37-145) L 12/10/21 14:20 TIBC 187 mcg/dl 12/10/21 14:20 % Saturation 15.5 % (20-50) L 12/10/21 14:20 Unsat Iron Binding 158 ug/dL (112-347) 12/10/21 14:20 Total Bilirubin 0.7 mg/dL (0.15-1.2) 12/12/21 06:20 AST 23 U/L (0-32) 12/12/21 06:20 ALT 18 U/L (0-33) 12/12/21 06:20 Alkaline Phosphatase 140 IU/L (35-105) H 12/12/21 06:20 Total Protein 4.8 g/dL (6.6-8.7) L 12/12/21 06:20 Albumin 2.6 g/dL (3.5-5.2) L 12/12/21 06:20 Globulin 2.2 g/dL (1.3-4.6) 12/12/21 06:20 Triglycerides 69 mg/dL (0-150) 12/11/21 04:51 Cholesterol 121 mg/dL (0-200) 12/11/21 04:51 LDL Cholesterol, Calc 67 mg/dL (50-129) 12/11/21 04:51 Total VLDL Cholesterol 14 mg/dL (0-30) 12/11/21 04:51 HDL Cholesterol 40 mg/dL (60-100) L 12/11/21 04:51 Cholesterol/HDL Ratio 3.03 mg/dL (0.0-4.40) 12/11/21 04:51 Procalcitonin 0.25 ng/mL (0-0.5) 12/10/21 14:20 TSH 1.95 uIU/mL (0.27-4.20) 12/10/21 14:20 Urine Color Yellow (Yellow) 12/10/21 21:25 Urine Appearance Sl cloudy (CLEAR) A 12/10/21 21:25 Urine pH 9 (5-7) H 12/10/21 21:25 Ur Specific Zachary 1.010 (1.005-1.030) 12/10/21 21:25 Urine Protein 1+ (Negative) H 12/10/21 21:25 Urine Glucose (UA) Norm (Normal) 12/10/21 21:25 Urine Ketones Negative (Negative) 12/10/21 21:25 Urine Blood 3+ (Negative) H 12/10/21 21:25 Urine Nitrate Negative (Negative) 12/10/21 21:25 Urine Bilirubin Neg (Negative) 12/10/21 21:25 Prot Sulfosalicylic Acd Positive (Negative) 12/10/21 21:25 Urine Urobilinogen Norm mg/dL (Negative) 12/10/21 21:25 Ur Leukocyte Esterase 2+ (Negative) H 12/10/21 21:25 Urine RBC 40-50 /hpf (0-2) H 12/10/21 21:25 Urine WBC 40-55 /hpf (0-5) H 12/10/21 21:25 Ur Squamous Epith Cells 25-40 /hpf (0-5) H 12/10/21 21: Amorphous Sediment Not Reportable 12/10/21 21: Urine Bacteria 4+ /hpf (NONE) H 12/10/21 21:25 Ur Random Sodium 66 mmol/L 12/10/21 21:25 Ur Random Potassium 42 mmol/L 12/10/21 21:25 Ur Random Chloride 58 mmol/L 12/10/21 21:25 Urine Opiates Screen Positive ng/mL (Negative) H 12/10/21 21:25 Ur Barbiturates Screen Negative ng/mL (Negative) 12/10/21 21:25 Ur Phencyclidine Scrn Negative ng/mL (Negative) 12/10/21 21:25 Ur Amphetamines Screen Negative ng/mL (Negative) 12/10/21 21:25 U Benzodiazepines Scrn Negative ng/mL (Negative) 12/10/21 21:25 Urine Cocaine Screen Negative ng/mL (Negative) 12/10/21 21:25 U Marijuana (THC) Screen Negative ng/mL (Negative) 12/10/21 21:25 Vitals Last Vital Signs Temp 98 F 12/12/21 08:00 Pulse 64 12/12/21 09:00 Resp 14 12/12/21 09:00 BP 145/65 12/12/21 09:00 Pulse Ox 94 12/12/21 09:00 Discharge Plan Discharge Patient Disposition: Xfer SNF Condition: Stable Prescriptions: New aspirin 81 mg Tablet,Delayed Release (Dr/Ec) 81 mg PO DAILY Qty: 30 0RF atorvastatin 40 mg Tablet 20 mg PO BEDTIME Qty: 30 0RF Pepcid 20 mg tablet 20 mg PO BID Qty: 30 0RF levofloxacin 500 mg tablet 500 mg PO Q24H 3 Days Qty: 3 0RF Continued acetaminophen 650 mg suppository 650 mg MN Q4H PRN (Reason: Pain) 0RF loperamide [Imodium A-D] 2 mg capsule 2 mg PO Q6H PRN (Reason: Constipation) 0RF acetaminophen [Tylenol] 325 mg tablet 650 mg PO QID PRN (Reason: Pain) 0RF hydrocodone-acetaminophen 10-325 mg tablet 1 tab PO BID 30 Days Qty: 60 0RF Rx Instructions: And Q4 prn. Senokot 8.6 mg Tablet 8.6 mg PO BID 0RF Zyprexa 2.5 mg Tablet 2.5 mg PO QPM 0RF Milk of Magnesia 400 mg/5 mL Suspension 15 ml PO BID PRN (Reason: Constipation) 0RF Roxanol 20 mg/5 mL (4 mg/mL) Solution See Rx Instructions .ROUTE .COMPLEX PRN (Reason: Pain) 0RF Rx Instructions: 0.5 ML (SOLN) SL Q1HR PRN Discharge Orders: Discharge Order (Routine); Ordered 12/12/21 Ordered By: Brendan Johnson Referrals: Ovidio Dumas MD [Primary Care Provider] - 7-10 days Discharge Diet: Usual diet and Cardiac Discharge Activity: Resume usual activity and Increase activity as tolerated Patient Instructions: Opioid Safety Discharge Attestations Time Spent in Discharge Care*: greater than 30 min Quality Metrics Clinical Quality Measures [ Cerebrovascular Accident { Contraindication to Antithrombotic: None; antithrombotic prescribed; Contraindication to Anticoagulation: Overlap treatment not indicated; Contraindication to Statin: None; Statin prescribed; Contraindication to tPA: None; TPA given;}] Coding Level of Care Code Acute g FW DC note Diagnoses Stroke I63.9 Received intravenous tissue plasminogen activator (tPA) in emergency department Z92.82 Decorticate posturing R29.3 CKD (chronic kidney disease) N18.9 Hypernatremia E87.0 HTN (hypertension) I10 Dementia associated with other underlying disease with behavioral disturbance F02.81
[2021-12-12] MEDS: cefTRIAXone 1,000 MG in sodium chloride 0.9% (plus) 50 ML 100 MG IV (11:02)
[2021-12-12 11:45] LABS: SARS Covid-2 Antigen Negative (Negative)
--- NOTE | 2021-12-12 13:26 | PC.NURSE ---
Next of kin, Sister called to inform of tranfer back to [facility], no answer.
--- NOTE | 2021-12-12 13:30 | PC.NURSE ---
Report called to [facility]. Report given to Aicha.
--- NOTE | 2021-12-12 13:55 | PC.NURSE ---
Ambulance crew here. Pt discharged to their care. Aicha Mathur, notified of tranport here.
== END 2021-12-12 13:55 | disposition skilled nursing facility (03) | DRG 65 ==
LOC: ER 17:09 → ICU 17:23
PROVIDERS: Admitting Provider Student in an Organized Health Care Education/Training Program; Emergency Provider Emergency Medicine; Family Provider Internal Medicine; PCP Internal Medicine; Visit Provider Student in an Organized Health Care Education/Training Program
DX: I63.9 Cerebral infarction, unspecified (principal); G81.94 Hemiplegia, unspecified affecting left nondominant side; F05 Delirium due to known physiological condition; E87.0 Hyperosmolality and hypernatremia; N39.0 Urinary tract infection, site not specified; R29.810 Facial weakness; R29.712 NIHSS score 12; F03.90 Unspecified dementia, unspecified severity, without behavioral disturbance, psychotic disturbance, mood disturbance, and anxiety; I12.9 Hypertensive chronic kidney disease with stage 1 through stage 4 chronic kidney disease, or unspecified chronic kidney disease; N18.9 Chronic kidney disease, unspecified; E78.5 Hyperlipidemia, unspecified; I25.10 Atherosclerotic heart disease of native coronary artery without angina pectoris; Z66 Do not resuscitate; Z79.891 Long term (current) use of opiate analgesic
CPT/HCPCS: 36415; 36416; 51702; 70450; 70496; 70498; 71045; 80053; 80061; 80306; 81001; 82436; 82962; 83036; 83540; 83550; 84133; 84145; 84300; 84443; 85025; 85610; 85730; 87040; 87086; 87150; 87205; 87426; 87449; 87641; 92610; 93005; 94664; 96374; 97165; 99285; C9113; J0696; J2997; Q9967